=== PATIENT | male | born 1955 | race Caucasian/White ===

== ENCOUNTER 2019-05-10 10:49 | Outpatient (CLI) | payer OTHER, SELFPAY ==
--- NOTE | 2019-05-10 11:22 | XR_ITS ---
WS: [id number] XR hip RT 2-3V wo/w pel* [id number] REASON FOR EXAM: BILATERAL HIP PAIN/LIMITED ROM IN BACK FINDINGS: The right hip joint appears to be normal with normal acetabulum femoral head articulations. There is no fractures of the head, neck, or intertrochanteric area. The ilium, ischium, and pubis appear to be normal. XR/XR hip RT 2-3V wo/w pel* [id number] IMPRESSION: Normal right hip
--- NOTE | 2019-05-10 11:22 | XR_ITS ---
WS: [id number] XR lumbar spine 2-3V* [id number] REASON FOR EXAM: BILATERAL HIP PAIN/LIMITED ROM IN BACK FINDINGS: Degenerated disc changes L5-S1. There is spurring anteriorly L3, L4, L5. There is a mild curve convex to the right in the lumbar area. There is slight increased lordosis seen. XR/XR lumbar spine 2-3V* [id number] IMPRESSION: Degenerated disc changes L5-S1.
== END 2019-05-10 10:50 | disposition home or self-care (01) ==
LOC: RAD 11:09
PROVIDERS: Visit Provider Student in an Organized Health Care Education/Training Program
DX: M25.552 Pain in left hip (principal); M25.551 Pain in right hip; M54.5 Low back pain; M47.897 Other spondylosis, lumbosacral region
CPT/HCPCS: 72100; 73502

== ENCOUNTER → 2022-08-10 09:38 | Outpatient (BNVA) | payer MEDICARE, SELFPAY | PROVIDERS: PCP Family Medicine; Visit Provider Nurse Practitioner Family | DX: L40.0 Psoriasis vulgaris (principal); L40.59 Other psoriatic arthropathy; L57.0 Actinic keratosis; L81.4 Other melanin hyperpigmentation; D22.5 Melanocytic nevi of trunk; L82.1 Other seborrheic keratosis; Z71.89 Other specified counseling | CPT/HCPCS: 17000; 17003; 99214 ==

== ENCOUNTER → 2023-02-20 09:08 | Outpatient (BNVA) | payer MEDICARE, SELFPAY | PROVIDERS: PCP Family Medicine; Visit Provider Nurse Practitioner Family | DX: L40.0 Psoriasis vulgaris (principal); L40.59 Other psoriatic arthropathy; L81.4 Other melanin hyperpigmentation; D22.5 Melanocytic nevi of trunk; L57.8 Other skin changes due to chronic exposure to nonionizing radiation; L57.0 Actinic keratosis | CPT/HCPCS: 17000; 99214 ==

== ENCOUNTER → 2024-03-27 09:18 | Outpatient (BNVA) | payer MEDICARE, SELFPAY | PROVIDERS: PCP Family Medicine; Visit Provider Nurse Practitioner Family | DX: L40.0 Psoriasis vulgaris (principal); Z79.899 Other long term (current) drug therapy; L40.59 Other psoriatic arthropathy; L81.4 Other melanin hyperpigmentation; D22.5 Melanocytic nevi of trunk; L57.8 Other skin changes due to chronic exposure to nonionizing radiation; L57.0 Actinic keratosis | CPT/HCPCS: 17000; 99214 ==

== ENCOUNTER → 2024-07-23 12:21 | Outpatient (BNVA) | payer MEDICARE, MEDICAID, SELFPAY | PROVIDERS: PCP Family Medicine; Visit Provider Internal Medicine | DX: R07.9 Chest pain, unspecified (principal); I10 Essential (primary) hypertension; F17.200 Nicotine dependence, unspecified, uncomplicated | CPT/HCPCS: 93005; 99204 ==

== ENCOUNTER → 2024-07-25 10:59 | Outpatient (BNVA) | payer MEDICARE, MEDICAID, SELFPAY | PROVIDERS: PCP Family Medicine; Visit Provider Nurse Practitioner Family | DX: L40.0 Psoriasis vulgaris (principal); Z79.899 Other long term (current) drug therapy; L57.8 Other skin changes due to chronic exposure to nonionizing radiation; L81.4 Other melanin hyperpigmentation; D22.5 Melanocytic nevi of trunk; L40.59 Other psoriatic arthropathy | CPT/HCPCS: 99214 ==

== ENCOUNTER 2024-08-15 07:49 | Outpatient (CLI) | payer MEDICARE, MEDICAID, SELFPAY ==
[2024-08-15 08:00] VITALS: BMI 25.0
--- NOTE | 2024-08-15 08:19 | ECG_ITS ---
[facility] [employer] Test Date: 2024-08-15 Pat Name: Gerardo Olivares Department: Room: Gender: Male Rn Flight: : 1955 Requested By: Rufino Holt Order Number: [id number] Angelic MD: Rufino Holt M.D. Interpretive Statements EXERCISE MIBI EXERCISE DATA: The patient was exercised by Rajat protocol. Baseline heart rate was 77 beats per minute. Baseline blood pressure was 158/101millimeters of mercury. Maximal predicted heart rate was 152 beats per minute. Maximum heart rate achieved was 142 which was 93% of the maximum predicted heart rate. Maximum blood pressure was 184/85 millimeters of mercury. Total exercise time was 4 minutes and 30 seconds. Maximum METs achieved was 7.0. The reason for ending the test was completion of protocol. The patient complained of shortness of breath during the stress test, which then resolved at the end of the test. ELECTROCARDIOGRAM: BASELINE: Showed sinus rhythm, normal axis, no significant ST-T changes at the baseline noted. [] EXERCISE: At the peak exercise level, [] No significant ST-T changes suggestive of ischemia noted. [] RECOVERY: During the recovery period, heart rate dropped appropriately. No significant ST-T changes in the recovery suggestive of ischemia noted. PVCs seen [] CONCLUSION: 1. Exercise capacity is fair. 2. Heart rate response was appropriate 3. Blood pressure response was appropriate 4. Symptoms not suggestive of ischemia. 5. Electrocardiogram portion of the stress test was not suggestive of ischemia. 6. Nuclear scan will be documented separately. Electronically Signed On 08-30-2024 15:32:46 CDT by Rufino Holt M.D. [email or web address]
--- NOTE | 2024-08-15 08:19 | NMCV_ITS ---
NM doug perf SPECT r/s* [id number] Gerardo Olivares Age: 68 Gender: M : 1955 Exam Date: 08/15/2024 08:59 Ordering Phys: Rufino Holt M.D ([email or web address]) Technologist: ANDREA Orellana Exam Location: [facility] Indications: cp STRESS TEST [facility] IMAGE PROTOCOL Rest/Stress 1 Exercise Day Radiopharmaceutical Dose (mCi) Administration Site Administered by Rest: Tc-99m 10.4 IV ANDREA Orellana Sestamibi Stress:Tc-99m 32.5 IV ANDREA Orellana Sestamibi Rest: 15-Aug-2024 60 Discovery 630 Stress: 15-Aug-2024 30 Discovery 630 Radiopharmaceutical was injected at 85 % maximum heart rate. Images obtained in supine and prone position. SPECT RESULTS Technical Quality: Good Raw Data Analysis: Normal Image Corrections: No attenuation or motion correction applied Summed Stress Score: 0 Summed Rest Score: 1 Summed Difference Score: 0 PERFUSION FINDINGS Medium sized area of fixed perfusion defect noted in basal to mid inferior wall in the absence of wall motion abnormality it could be an artifact FUNCTIONAL RESULTS (calculated via Gated SPECT) Stress Image LV EF (%): 81 Stress EDV (mL):59 TID: 0.77 Stress ESV (mL):11 FUNCTIONAL FINDINGS: There is normal left ventricular systolic function. IMPRESSIONS This study is negative for ischemia. Beth Oh MD (Electronically Signed) Final Date: 23 August 2024 19:29 S
== END 2024-08-15 07:50 | disposition home or self-care (01) ==
PROVIDERS: PCP Family Medicine; Visit Provider Internal Medicine
DX: R07.9 Chest pain, unspecified (principal); R06.02 Shortness of breath; R93.1 Abnormal findings on diagnostic imaging of heart and coronary circulation
CPT/HCPCS: 36415; 78452; A9500

== ENCOUNTER → 2024-11-26 10:37 | Outpatient (BNVA) | payer MEDICARE, MEDICAID, SELFPAY | PROVIDERS: PCP Family Medicine; Visit Provider Nurse Practitioner Family | DX: L40.0 Psoriasis vulgaris (principal); Z79.899 Other long term (current) drug therapy; L81.4 Other melanin hyperpigmentation; L57.8 Other skin changes due to chronic exposure to nonionizing radiation; D22.5 Melanocytic nevi of trunk; L82.1 Other seborrheic keratosis | CPT/HCPCS: 99214 ==

== ENCOUNTER → 2025-01-30 15:04 | Outpatient (BNVA) | payer MEDICARE, MEDICAID, SELFPAY | PROVIDERS: PCP Family Medicine; Visit Provider Internal Medicine | DX: I10 Essential (primary) hypertension (principal); F17.200 Nicotine dependence, unspecified, uncomplicated | CPT/HCPCS: 99213 ==